=== PATIENT | female | born 1975 | race Caucasian/White ===

== ENCOUNTER 2022-10-14 11:05 | Outpatient (CLI) | payer BC, SELFPAY ==
[2022-10-14 21:45] LABS: Albumin* 4.3 g/dL (3.3-5.0); Chloride* 106 mmol/L (96-114)
[2022-10-14 21:46] LABS: Potassium* 4.1 mmol/L (3.6-5.1); Sodium* 141 mmol/L (135-149)
[2022-10-14 21:48] LABS: Aspartate Amino Transferase* 27 U/L (12-35); Bilirubin Total* 0.6 mg/dL (0.1-1.5); Carbon Dioxide* 27 mmol/L (20-32); Creatinine* 0.8 mg/dL (0.5-1.5); Estimated Glomerular Filt Rate 91 ml/min; Total Protein* 7.4 g/dL (6.0-8.3)
[2022-10-14 21:49] LABS: Alanine Aminotransferase* 27 U/L (4-35); Alkaline Phosphatase* 83 U/L (40-150); Blood Urea Nitrogen* 8 mg/dL (5-24); Calcium* 10.1 mg/dL (8.4-10.6); Glucose* 96 mg/dL (60-115)
[2022-10-14 22:06] LABS: Free T4 Free Thyroxine* 1.07 ng/dL (0.70-1.85)
[2022-10-14 22:20] LABS: Thyroid Stimulating Hormone* 0.118 uIU/mL (0.270-4.20)
[2022-10-17 02:49] LABS: Total T3 135 ng/dL (80-200)
[2022-10-17 03:09] LABS: Follicle Stimulating Hormone 8.6 IU/L
== END 2022-10-14 11:06 | disposition home or self-care (01) ==
PROVIDERS: PCP Family Medicine; Visit Provider Family Medicine
DX: E03.9 Hypothyroidism, unspecified (principal); N95.1 Menopausal and female climacteric states; Z80.0 Family history of malignant neoplasm of digestive organs; Z80.49 Family history of malignant neoplasm of other genital organs; Z76.89 Persons encountering health services in other specified circumstances
CPT/HCPCS: 80053; 81292; 81294; 81295; 81297; 81298; 81300; 81317; 81319; 81403; 83001; 84439; 84443; 84480

== ENCOUNTER 2023-12-08 13:45 | Outpatient (RCR) | payer BC, SELFPAY | END 2024-04-06 23:59 | disposition home or self-care (01) | PROVIDERS: PCP Family Medicine; Visit Provider Orthopaedic Surgery | DX: M25.552 Pain in left hip (principal); Z51.89 Encounter for other specified aftercare | CPT/HCPCS: 97110; 97140; 97161 ==

== ENCOUNTER 2024-07-23 15:10 | Outpatient (CLI) | payer BC, SELFPAY | END 2024-07-23 15:11 | disposition home or self-care (01) | PROVIDERS: PCP Family Medicine; Visit Provider Family Medicine | DX: E03.9 Hypothyroidism, unspecified (principal); S09.90XA Unspecified injury of head, initial encounter | CPT/HCPCS: 80053; 84443 ==

== ENCOUNTER 2024-07-25 10:28 | Emergency (ER) | payer BC, SELFPAY ==
[2024-07-25 10:31] VITALS: BP 109/74; PULSE 18; RESP 97; TEMP 36; O2SAT 98; BMI 24.2
--- NOTE | 2024-07-25 11:19 | ED.HA ---
HPI - Headache General Time Seen by Provider: 11:00 Date Seen: 07/25/24 Chief Complaint: Headache/Migraine Stated Complaint: head injury - pain/numbness/nausea Time Seen by Provider: 07/25/24 10:51 Source: patient and family Mode of arrival: ambulatory Limitations: no limitations History of Present Illness HPI Narrative: Patient is a 48-year-old female with a past medical history of chronic migraine headaches, recent head injury on 07/15/2024 who presents to the emergency department for evaluation of a headache. Patient reports that she developed a headache last night around 2100. Patient states that she feels as if she has 2 headaches going on 1 which is similar to her chronic migraine headaches along with some new pain as well. Patient reports migraine headache which is located on the right side of her face but also reports some pain that goes to the back of her head described as a pressure-like pain. Patient states she did take 2 Tylenol last night and tried to go to bed however was unable to sleep. Patient reports later taking a Tylenol 3 along with Zofran. Patient reports that she did have nausea and vomiting secondary to the pain. Did also try taking oxycodone to help with the pain. Patient states that she did have a CT of the head which was unremarkable with no evidence of bleeding while at [facility], the initially recommended an MRI as she was having some paresthesias and weakness to her extremities however that has improved and patient left against medical advice prior to MRI. Patient did follow-up with her primary care provider on Tuesday and had comprehensive labs and was going to get an outpatient MRI scheduled. Patient reports her liver enzyme tests were elevated and they are going to repeat the mid 2 weeks. Patient reports some intermittent dizziness since her head injury. Denies any new trauma or injury. Denies any chronic anticoagulation. Patient denies any vision changes, neck pain, no focal weakness or tingling or numbness. Patient does states she still feels as if the left side of her body feels off. Patient denies any chest pain, shortness of breath, abdominal pain. No other complaints. Related Data Home Medications ?Medication ?Instructions ?Recorded ?Confirmed famotidine 20 mg chewable tablet 20 mg PO PRN 10/14/22 07/23/24 estradiol 0.075 mg/24 hr 1 patch transdermal 2XW 11/17/23 07/25/24 semiweekly transdermal patch Previous Rx's ?Medication ?Instructions ?Recorded valacyclovir 1 gram tablet 2,000 mg (2 x 1 gram) PO BID #8 10/14/22 (Valtrex) tabs ketorolac 10 mg tablet 10 mg PO Q6H PRN for pain #30 tabs 11/08/23 ondansetron 8 mg disintegrating 8 mg PO Q8H PRN for 11/08/23 tablet nausea/vomiting #20 tabs sumatriptan succinate 100 mg tablet 100 mg PO Q2-4H PRN migraine 12/30/23 headache #14 tabs Allergies Allergy/AdvReac Type Severity Reaction Status Date / Time hydromorphone (From Dilaudid) AdvReac Severe Headache Verified 11/22/23 15:45 Propranolol AdvReac Dizziness, Uncoded 11/22/23 15:45 Vertigo Review of Systems Const: Denies: fever Eyes: Denies: change in vision or blurry vision ENMT: Denies: neck pain Cardio: Denies: chest pain or shortness of breath with exertion Resp: Denies: shortness of breath GI: Reports: nausea and vomiting; Denies: abdominal pain : Denies: painful urination Musculo: Denies: neck pain Integ/Breast: Denies: rash Neuro: Reports: headache and dizziness Uzair/Lymph: Denies: easy bleeding PFSH PFSH Medical History (Updated 07/25/24 @ 12:23 by Crista Ballard MD) Cavernous hemangioma of liver ?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 - Hemangioma of intra-abdominal structures (ICD-10) Surgical History (Updated 11/22/23 @ 15:47 by Maris Ramsey ~ PAPER MAKING MACHINE OPERATOR, PAPER MAKING MACHINE OPERATOR) H/O oophorectomy Hx of tonsillectomy ?Z90.89 - Acquired absence of other organs (ICD-10) Hx of appendectomy ?Z90.49 - Acquired absence of other specified parts of digestive tract (ICD-10) Hx of cholecystectomy ?Z90.49 - Acquired absence of other specified parts of digestive tract (ICD-10) Family History (Updated 10/14/22 @ 10:32 by Jolene Pichardo MD) Mother Colon cancer Uterine cancer Social History Smoking Status: Never smoker Exam Const: Vital Signs, click to edit/add: Vital Signs - 24 hr 07/25/24 10:31 07/25/24 12:20 Temperature 96.8 F L Pulse Rate [Pulse Oximeter] 18 L 94 Respiratory Rate 97 H 16 Blood Pressure [Ri ght Upper Arm] 109/74 128/71 Pulse Oximetry 98 98 Oxygen Delivery Me thod Room Air Room Air Documenting provider has reviewed patient's vital signs: yes Common normals: oriented x3; apparent distress (Moderate distress secondary to pain) General appearance: cooperative Orientation/consciousness: Yes awake, Yes oriented to person, Yes oriented to place and Yes oriented to time HENMT: Common normals: normocephalic, external nose normal and oropharynx normal; head/scalp not atraumatic (Healing laceration to right eyebrow appears to be healing well with no milton) Head and scalp: normocephalic; not atraumatic (Healing laceration to right eyebrow appears to be healing well with no milton) Face and sinus: normal facial exam Nose: external nose normal Eye: Common normals: PERRL, EOMs intact bilaterally and conjunctivae normal Conjunctiva: conjunctiva(e) normal Sclera: sclerae normal Pupil: PERRL Neck & C-Spine: Common normals: full ROM, supple and no meningeal signs Lymph: Lymphatic: no lymphadenopathy noted Chest: Common normals: inspection of chest normal Chest: symmetrical chest wall rise Resp: Common normals: normal respiratory effort, no retractions, no use of accessory muscles and clear to auscultation bilaterally Auscultation: clear to auscultation bilaterally Cardio: Common normals: regular rate and regular rhythm Rate: regular rate Rhythm: regular rhythm GI: Common normals: Normal to inspection, nondistended, normoactive bowel sounds present, soft to palpation and non-tender Palpation: soft : Common normals: no CVA tenderness Bladder/kidney exam: no CVA tenderness Back & Pelvis: Common normals: no CVA tenderness Extremity: Common normals: normal to inspection and full ROM Neuro: Common normals: oriented x3, CN's II-XII intact bilaterally, moves all extremities, no focal motor deficits and no sensory deficits noted Sensorium/orientation: awake, oriented to person, oriented to place and oriented to time Meningeal signs: no meningeal signs Psych: Common normals: mental status grossly normal, thought process normal, cooperative, affect normal, speech normal and activity/motor behavior normal Speech: normal speech Thought process: normal thought process Skin: Common normals: no rashes or lesions noted General skin exam: no rashes or lesions noted Course Vital Signs Vital signs: Initial Vital Signs Temperature 96.8 F L 07/25/24 10:31 Temperature Source Temporal Artery Scan 07/25/24 10:31 Pulse Rate 18 L 07/25/24 10:31 Respiratory Rate 97 H 07/25/24 10:31 Blood Pressure 109/74 07/25/24 10:31 Blood Pressure Mean 85 07/25/24 10:31 Blood Pressure Position Sitting 07/25/24 10:31 Pulse Oximetry 98 07/25/24 10:31 Oxygen Delivery Method Room Air 07/25/24 10:31 Vital Signs Temperature 96.8 F L 07/25/24 10:31 Pulse Rate 18 L 07/25/24 10:31 Respiratory Rate 97 H 07/25/24 10:31 Blood Pressure 109/74 07/25/24 10:31 Pulse Oximetry 98 07/25/24 10:31 Oxygen Delivery Method Room Air 07/25/24 10:31 Temperature 96.8 F L 07/25/24 10:31 Pulse Rate 94 07/25/24 12:20 Respiratory Rate 16 07/25/24 12:20 Blood Pressure 128/71 07/25/24 12:20 Pulse Oximetry 98 07/25/24 12:20 Oxygen Delivery Method Room Air 07/25/24 12:20 Medications Administered Medications: Discontinued Medications Generic Name Dose Route Start Last Admin Trade Name Freq PRN Reason Stop Dose Admin Diphenhydramine HCl 25 mg 07/25/24 11:14 07/25/24 11:32 Diphenhydramine 50 Mg/Ml Inj IVP 07/25/24 11:15 25 mg ONCE ONE Administration Sodium Chloride 1,000 mls @ 1,000 mls/hr 07/25/24 11:15 07/25/24 12:22 0.9 % Sodium Chloride 1000 Ml IV 07/25/24 12:14 Infused .Q1H SHAHEEN Infusion Ketorolac Tromethamine 30 mg 07/25/24 11:14 07/25/24 11:32 Ketorolac 30 Mg/Ml Inj IVP 07/25/24 11:15 30 mg ONCE ONE Administration Prochlorperazine 10 mg 07/25/24 11:14 07/25/24 11:32 Prochlorperazine 5 Mg/Ml Vial IV 07/25/24 11:15 10 mg ONCE ONE Administration MDM - Headache MDM Narrative Medical decision making narrative: 48-year-old female history of chronic migraines here with migraine in the setting of recent closed head injury on 07/15/2024. Upon arrival patient is nontoxic appearing, afebrile, moderate distress secondary to pain, nausea, vomiting. Cranial nerves 2-12 intact with no focal motor, sensory, speech deficit. Patient recently had CT of the head on 07/15/2024 which demonstrates no acute intracranial hemorrhage. Currently being treated for post concussion syndrome. Patient is not on chronic anticoagulation, no new focal neurological deficits, no new head injury. Discussing consider CT imaging here however patient declined which I think is reasonable as suspicious for acute intracranial hemorrhage is low. Suspect patient's symptoms are most likely secondary to concussion along with chronic migraines. Did recommend following up outpatient for MRI which is being scheduled by her primary care provider. Patient treated with headache cocktail the emergency depart with 1 L IV fluid bolus, Toradol, Compazine, Benadryl. 1200 - on my evaluation patient resting comfortably, reports significant improvement of her symptoms with pain from a 10 down to a 1. Patient is do not want any additional medications at this time. Will re-evaluate after IV fluid bolus. 1220 pm - patient continues to feel well with resolution symptoms. Patient requesting discharge home. I discussed at length with patient and her spouse regarding ongoing treatment for migraine headache as well as concussion symptoms. Plan for discharge home with supportive care, rest, hydration, Tylenol, ibuprofen/Toradol, Zofran as needed. Encouraged close outpatient follow-up with her primary care provider and strict return precautions discussed if recurrent headaches, persistent vomiting, weakness, tingling, numbness, with new or worsening symptoms. Patient's spouse understand agree with plan. Medical Records Attestation: I reviewed the patient's medical records. Discharge Plan Discharge Clinical Impression: Headache Patient Disposition: Home, Self-Care Additional Instructions: Please follow up with your primary care provider in the next 2-3 days for further evaluation and follow-up. Please call the scheduling appointment. We recommend following up/touching base with your doctor to let them know you were in the emergency department regarding her headaches as well as to schedule your MRI outpatient. Please continue your own medications. Please continue to rest, make sure you are drinking plenty of fluids, getting plenty of sleep. We recommend taking [id number] Tylenol 1000 mg and ibuprofen 600 mg every 6 hours as needed for headache. Please continue Zofran as needed for nausea. Please return to the emergency department if any new or worsening symptoms. It was a pleasure taking care of you today. We hope you feel better soon. Prescriptions: No Action valacyclovir [Valtrex] 1 gram tablet 2,000 mg PO BID Qty: 8 12RF famotidine 20 mg tablet,chewable 20 mg PO PRN estradiol 0.075 mg/24 hr patch semiweekly 1 patch transdermal 2XW Rx Instructions: apply 1 patch for 3 days alternating with 1 patch for 4 days each week for 3 wks per 4-wk cycle ondansetron 8 mg tablet,disintegrating 8 mg PO Q8H PRN (Reason: for nausea/vomiting) Qty: 20 0RF ketorolac 10 mg tablet 10 mg PO Q6H PRN (Reason: for pain) Qty: 30 0RF sumatriptan succinate 100 mg tablet 100 mg PO Q2-4H PRN (Reason: migraine headache) Qty: 14 12RF Follow Up/Referrals: Jolene Pichardo MD [Primary Care Provider] - Stand Alone Forms: [employer] Info Instructions
[2024-07-25] MEDS: 0.9 % SODIUM CHLORIDE 1000 ml 1,000 ML IV (11:32)
[2024-07-25] MEDS: diphenhydrAMINE 50 MG/ML inj 25 MG IVP (11:32)
[2024-07-25] MEDS: KETOROLAC 30 MG/ML inj IVP (11:32)
[2024-07-25] MEDS: PROCHLORPERAZINE 5 MG/ML VIAL 10 MG IV (11:32)
[2024-07-25 12:20] VITALS: BP 128/71; PULSE 94; RESP 16; O2SAT 98
== END 2024-07-25 12:28 | disposition home or self-care (01) ==
PROVIDERS: Emergency Provider Emergency Medicine; PCP Family Medicine
DX: R51.9 Headache, unspecified (principal)
CPT/HCPCS: 96374; 96375; 99284; 99285; J0780; J1200; J1885; J7030

== ENCOUNTER 2024-07-31 09:00 | Outpatient (CLI) | payer BC, SELFPAY ==
--- NOTE | 2024-07-31 09:15 | CRLHL7_ITS ---
For Patients: As a result of the Century Cures Act, medical imaging exams and procedure reports are released immediately into your electronic medical record. You may view this report before your referring provider. If you have questions, please contact your health care provider. Indication: Syncope. Technique: Noncontrast sagittal T1, axial FLAIR, T2, diffusion weighted sequences are provided. No comparisons. Findings: The ventricles, sulci and gyri are normal size, shape and contour for age. The midline structures are centrally located with no evidence of shift. There are no suspicious intra or extra-axial fluid collections. No region of restricted diffusion. Expected flow voids in the cavernous carotids and basilar artery. Solitary, 3 millimeter focus of increased T2 signal in the subcortical white matter of the lateral posterior left frontal lobe that is nonspecific. Impression: 1. No radiographic evidence of acute intracranial abnormalities. 2. Solitary, tiny focus of signal abnormality within the subcortical white matter of the posterolateral left frontal lobe that is nonspecific. Differential considerations include changes related to diabetes, hypertension, collagen vascular disease or migranous headaches. Dictated by Rod Recio MD @ 07/31/2024 10:24:58 AM (Electronically Signed)
--- NOTE | 2024-07-31 10:45 | CRLHL7_ITS ---
For Patients: As a result of the Century Cures Act, medical imaging exams and procedure reports are released immediately into your electronic medical record. You may view this report before your referring provider. If you have questions, please contact your health care provider. INDICATION: Thyroid nodule seen on outside CT COMPARISON: None available TECHNIQUE: Franklin scale and color Doppler images were acquired of the thyroid gland. FINDINGS: Isthmus measures 2.7 millimeters. Hypoechoic solid nodule left thyroid lobe measures 10 x 9 x 8 millimeters, TR 4. The right lobe measures 5.0 x 1.1 x 1.5 cm and the left lobe measures 4.6 x 1.2 x 1.3 cm in size. The color Doppler images demonstrate normal vascularity. There is no evidence of cervical lymphadenopathy or parathyroid mass. IMPRESSION: 1 cm TR 4 nodule left thyroid lobe. Follow-up in 1 year recommended. Dictated by Noam Tay MD @ 07/31/2024 11:55:06 AM (Electronically Signed)
== END 2024-07-31 09:01 | disposition home or self-care (01) ==
LOC: MRI 09:01
PROVIDERS: PCP Family Medicine; Visit Provider Family Medicine
DX: R55 Syncope and collapse (principal); E07.9 Disorder of thyroid, unspecified; S09.90XA Unspecified injury of head, initial encounter
CPT/HCPCS: 70551; 76536

== ENCOUNTER 2024-08-13 12:16 | Outpatient (CLI) | payer BC, SELFPAY | END 2024-08-13 12:17 | disposition home or self-care (01) | LOC: FRMREF 12:18 | PROVIDERS: PCP Family Medicine; Visit Provider Family Medicine | DX: Z13.228 Encounter for screening for other metabolic disorders (principal) | CPT/HCPCS: 80053 ==

== ENCOUNTER 2024-08-20 14:49 | Outpatient (CLI) | payer BC, SELFPAY | END 2024-08-20 14:50 | disposition home or self-care (01) | LOC: NFLDREF 08-21 01:46 | PROVIDERS: PCP Family Medicine; Referring Provider Family Medicine; Visit Provider Family Medicine | DX: E83.52 Hypercalcemia (principal) | CPT/HCPCS: 82310 ==

== ENCOUNTER 2024-08-31 09:47 | Outpatient (CLI) | payer BC, SELFPAY ==
[2024-09-01 17:55] LABS: Calcium/Creatinine Ratio Urine 247 mg/g (20-300); Hours Collected 24 hr; Total Volume 1750 mL
== END 2024-08-31 09:48 | disposition home or self-care (01) ==
LOC: FRMREF 09:47
PROVIDERS: PCP Family Medicine; Visit Provider Family Medicine
DX: E83.52 Hypercalcemia (principal); E03.9 Hypothyroidism, unspecified
CPT/HCPCS: 82306; 82340; 82397; 83970

== ENCOUNTER 2024-12-14 14:37 | Outpatient (CLI) | payer BC, SELFPAY | END 2024-12-14 14:38 | disposition home or self-care (01) | PROVIDERS: PCP Family Medicine; Visit Provider Family Medicine | DX: E83.52 Hypercalcemia (principal); E03.9 Hypothyroidism, unspecified; E21.3 Hyperparathyroidism, unspecified; E07.9 Disorder of thyroid, unspecified | CPT/HCPCS: 82306; 82652 ==